=== PATIENT | female | born 1975 | race Two or more races ===

== ENCOUNTER 2016-10-16 20:28 | Emergency (ER) | payer OTHER ==
[2016-10-16 20:39] VITALS: BP 107/60; PULSE 106; RESP 18; TEMP 99; O2SAT 96
[2016-10-16] MEDS ORDERED: IBUPROFEN 600 MG TAB PO ONE (20:45)
--- NOTE | 2016-10-16 21:14 | EDPHY ---
H & P Time Seen by Provider: 10/16/16 20:45 HPI/ROS: CHIEF COMPLAINT: Flu-like symptoms HISTORY OF PRESENT ILLNESS: Patient is a 41-year-old female who presents emergency department with 3 days of flu-like symptoms. She states her older son recently had similar symptoms. She developed a nonproductive cough. She occasionally has nausea post coughing episodes. She has had a mild sore throat. No problems swallowing. She denies shortness of breath. She has abdominal pain with coughing but not at rest. She has had no diarrhea. She has had a subjective fever and chills. No rash. No recent travel. Patient has back discomfort with coughing. REVIEW OF SYSTEMS: My complete review of systems is negative except as mentioned in the HPI. Past Medical/Surgical History: Includes miscarriage, ovarian cyst Smoking Status: Never smoked Physical Exam: Vitals noted. Heart rate 106. 37.2 GENERAL: No acute distress, alert. HEENT: Eyes normal to inspection, normal pharynx, no signs of dehydration. NECK: No thyromegaly, no lymphadenopathy, supple. RESPIRATORY: Clear to auscultation bilaterally, no rales, rhonchi or wheezing. CVS: Regular rate and rhythm, no rubs, murmurs, or gallops. ABDOMEN: Soft, nontender, nondistended, no organomegaly. BACK: Normal to inspection, no CVA tenderness. SKIN: Normal color, no rash, warm, dry. No pallor. EXTREMITIES: No pedal edema, no calf tenderness, no Homans sign or cords, no joint swelling. NEURO/PSYCH: Alert and oriented x3, normal mood and affect, normal motor sensory exam. No obvious cranial nerve deficit. Constitutional: Initial Vital Signs Temperature (C) 37.2 C 10/16/16 20:34 Heart Rate 106 H 10/16/16 20:34 Respiratory Rate 18 10/16/16 20:34 Blood Pressure 107/60 10/16/16 20:34 O2 Sat (%) 96 10/16/16 20:34 O2 Delivery Mode Room Air Allergies/Adverse Reactions: No Known Allergies Allergy (Unverified 10/16/16 20:34) Home Medications: Medication Instructions Recorded NK [No Known Home Meds] 10/16/16 Medical Decision Making - Diagnostics Imaging Results: Imaging Impressions Chest X-Ray 10/16/16 21:11 Impression: Findings consistent with airways disease are noted. ED Course/Re-evaluation: In the emergency department I discussed possible etiologies with the patient. I used a nut sheller machine operator for all interactions. Chest x-ray was ordered. The patient consented. Chest x-ray: No acute disease noted. I discussed the result with the patient. On recheck she was stable. She had no new complaints. She was given warnings prior to leaving. She will return with worsening symptoms. Differential Diagnosis: Differential includes but is not limited to pneumonia, bronchitis, influenza, viral illness, dehydration, electrolyte abnormality, sugar abnormality, bacteremia, sepsis - Data Points Medications Given: Discontinued Medications Ibuprofen (Motrin) 600 mg PO EDNOW ONE Stop: 10/16/16 20:46 Last Admin: 10/16/16 20:51 Dose: 600 mg Departure - Departure Disposition: Home, Routine, Self-Care Clinical Impression: Viral syndrome Condition: Good Instructions: Viral Syndrome (ED) Additional Instructions: Return with increasing shortness of breath, persistent fever, worsening weakness or any other concerns. Stay well-hydrated. Referrals: [facility] [Other] - 2-3 days, if not improved Stand Alone Forms: Work Excuse
== END 2016-10-16 22:46 | disposition home or self-care (01) ==
LOC: MERGE 20:28
DX: B34.9 Viral infection, unspecified (principal)

== ENCOUNTER 2017-09-21 02:47 | Emergency (ER) | payer OTHER ==
[2017-09-21] MEDS ORDERED: ONDANSETRON 4 MG/2 ML VIAL ONE (03:01)
[2017-09-21] MEDS ORDERED: ONDANSETRON 4 MG/2 ML VIAL IVP ONE (03:03)
[2017-09-21] MEDS ORDERED: HYDROmorphONE/DILAUDID 2 MG/ML INJ ONE (03:04)
[2017-09-21] MEDS ORDERED: HYDROmorphONE/DILAUDID 2 MG/ML INJ IVP ONE (03:05)
--- NOTE | 2017-09-21 03:33 | EDPHY ---
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 HPI The patient presents with back and abdominal pain that began about 2 hr ago while she was asleep and awoke her from sleep. She went to bed last night feeling completely well. His pain began in her right scapula, was severe and constant and then quickly traveled to her epigastric region where persisted. She had 2 episodes of vomiting with this as well as 1 episode of diarrhea. She has no prior history of similar pain. Her pain did not subside at home so she came into the emergency department.. REVIEW OF SYSTEMS Constitutional: No fever, no chills. Eyes: No discharge. ENT: No sore throat. Cardiovascular: No chest pain, no palpitations. Respiratory: No cough, no shortness of breath. Gastrointestinal: See HPI Genitourinary: No hematuria. Musculoskeletal: No back pain. Skin: No rashes. Neurological: No headache. PMHx: History of ovarian cyst with some sort of gynecologic procedure Soc Hx: Lives at home with her PHYSICAL General Appearance: Alert, uncomfortable appearing Eyes: Pupils equal and round no pallor or injection ENT, Mouth: Mucous membranes moist Respiratory: There are no retractions, lungs are clear to auscultation Chest wall: There is no chest wall tenderness Cardiovascular: Regular rate and rhythm Gastrointestinal: Abdomen is soft with tenderness in the epigastrium, no masses , bowel sounds normal Neurological: A&O, moves all extremities Back: There is tenderness throughout her thoracic spine and paraspinal region Skin: Warm and dry, no rashes Musculoskeletal: Neck is supple non tender Extremities: symmetrical, full range of motion Psychiatric: Patient is oriented X 3, there is no agitation Source: Patient, [place] Exam Limitations: No limitations - Personal History LMP (Females 10-55): 1-7 Days Ago Current Tetanus/Diphtheria Vaccine: Yes Tetanus Vaccine Date: 2009 - Medical/Surgical History Hx Asthma: No Hx Chronic Respiratory Disease: No Hx Diabetes: No Hx Cardiac Disease: No Hx Renal Disease: No Hx Cirrhosis: No Hx Alcoholism: No Hx HIV/AIDS: No Hx Splenectomy or Spleen Trauma: No Other PMH: - Social History Smoking Status: Never smoked Constitutional: Initial Vital Signs Temperature (C) 36.3 C 09/21/17 02:50 Heart Rate 58 L 09/21/17 02:50 Respiratory Rate 24 H 09/21/17 02:50 Blood Pressure 96/36 L 09/21/17 02:50 O2 Sat (%) 98 09/21/17 02:50 O2 Delivery Mode Room Air O2 (L/minute) 2 Allergies/Adverse Reactions: No Known Allergies Allergy (Unverified 09/21/17 02:50) Home Medications: Medication Instructions Recorded Famotidine [Pepcid 20 MG (*)] 20 mg PO BID #30 tab 09/21/17 Medical Decision Making - Diagnostics EKG Interpretation: EKG: Complete interpretation has been separately recorded in the [employer] archive. Summary impression: Normal sinus rhythm Imaging Results: Chest x-ray two view shows no cardiomegaly, no infiltrate, no pneumothorax, interpreted by me, radiology interpretation is pending. Procedures: Bedside limited abdominal Ultrasound- performed and interpreted by me. Indication: Epigastric abdominal pain Findings: No hydronephrosis appreciated bilaterally, there is no gallstones, gallbladder is enlarged, there is no pericholecystic fluid or gallbladder wall thickening Impression: No sonographic evidence of hydronephrosis or cholecystitis. Differential Diagnosis: 42-year-old healthy female presents with several hours of scapular an epigastric pain associated with vomiting. On exam, uncomfortable appearing, does have epigastric tenderness and some midthoracic spine and paraspinal tenderness. Her vital signs are normal and she is afebrile. Differential diagnosis includes gastritis, pancreatitis, biliary colic, cholecystitis, pneumothorax, pneumonia, ACS, ureterolithiasis. In the emergency department, the patient was given IV fluids and pain medication with resolution in her symptoms. Labs were checked and did reveal a mild leukocytosis. UA had a small amount of blood, however patient is on her menses. I suspect she may be suffering from gastritis given her relatively unremarkable workup today. I have explained this to her. I will discharge her with famotidine and we have discussed dietary changes. She is in agreement with the plan. - Data Points Laboratory Results: Laboratory Results 09/21/17 03:00 09/21/17 03:00 Medications Given: Discontinued Medications Famotidine (Pepcid) 20 mg PO EDNOW ONE Stop: 09/21/17 05:47 Last Admin: 03/29/18 05:52 Dose: 20 mg Hydromorphone HCl (Dilaudid) 1 mg IVP EDNOW ONE Stop: 09/21/17 03:06 Last Admin: 09/21/17 03:06 Dose: 1 mg Ondansetron HCl (Zofran) 4 mg IVP EDNOW ONE Stop: 09/21/17 03:04 Last Admin: 09/21/17 03:04 Dose: 4 mg Departure - Departure Disposition: Home, Routine, Self-Care Clinical Impression: Epigastric pain Vomiting Qualifiers: Vomiting type: unspecified Vomiting Intractability: non-intractable Nausea presence: with nausea Qualified Code(s): R11.2 - Nausea with vomiting, unspecified Thoracic back pain Qualifiers: Chronicity: acute Back pain laterality: bilateral Qualified Code(s): M54.6 - Pain in thoracic spine Condition: Good Instructions: Gastritis (ED), Diet for Stomach Ulcers and Gastritis (ED) Additional Instructions: Please avoid eating any food 2 hr before bedtime. You should try to avoid food that is spicy, fried, acidic. You can take the medication for the next few days to see if this helps her symptoms. Please call [facility] to make a follow-up appointment tomorrow. Por favor, evite comer cualquier alimento 2 horas antes de acostarse. Debe intentar evitar los alimentos picantes, fritos, cidos. Puede harley el medicamento gretel los prximos biswas para stacey si esto ayuda a loren sntomas. Por favor llame a [facility] para hacer huseyin elise de seguimiento maana. Referrals: [facility] ,. [[facility] for Call Sched] - As per Instructions Stand Alone Forms: Work Excuse Prescriptions: Famotidine [Pepcid 20 MG (*)] 20 mg PO BID #30 tab Print Language: Korean
[2017-09-21 03:48] LABS: PLATELET COUNT 319 10^3/uL (150-400)
--- NOTE | 2017-09-21 04:45 | CPEKG ---
Heart Rate: 58 RR Interval: 1034 P-R Interval: 232 QRSD Interval: 96 QT Interval: 452 QTC Interval: 445 P [place]: 69 QRS [place]: 62 T Wave [place]: 81 EKG Severity - ABNORMAL ECG - EKG Impression: SINUS RHYTHM EKG Impression: FIRST DEGREE AV BLOCK Electronically Signed By: Ivis Arrieta 22-Sep-2017 05:53:10
[2017-09-21 04:54] VITALS: RESP 16; TEMP 97.9
[2017-09-21] MEDS ORDERED: FAMOTIDINE 20 MG TAB PO ONE (05:46)
[2017-09-21 05:56] VITALS: BP 112/74; PULSE 74; O2SAT 96
== END 2017-09-21 05:56 | disposition home or self-care (01) ==
DX: R10.13 Epigastric pain (principal); R11.2 Nausea with vomiting, unspecified; M54.6 Pain in thoracic spine
CPT/HCPCS: 96374; J1170; J2405